=== PATIENT | female | born 1990 | race Caucasian/White ===

== ENCOUNTER 2016-07-23 19:25 | Emergency (ER) | payer SELFPAY ==
[~2016-07-23] VITALS: Ht 154.9 cm; Wt 80.7 kg
[2016-07-23 21:17] LABS: BILIRUBIN,URINE NEGATIVE (NEG); GLUCOSE,URINE NEGATIVE (NEG); NITRITE,URINE NEGATIVE (NEG); PH,URINE 7.5; PROTEIN,URINE NEGATIVE (NEG-TRACE)
[2016-07-23 21:24] LABS: BACTERIA,URINE MANY /HPF (0-FEW); RBC,URINE 0 /HPF (0-2); SQUAMOUS EPITHELIAL CELL,UR MANY /LPF
[2016-07-23 21:55] LABS: BASO % 0 % (0-3); EOS % 2 % (0-3); HEMOGLOBIN 12.8 g/dL (12.0-15.5); LYMPH # 2.1 x10^3/uL (1.0-4.8); LYMPH % 19 % (24-48); MEAN CORPUSCULAR HEMOGLOBIN 32 pg (25-35); MEAN CORPUSCULAR HGB CONC 34 g/dL (31-37); MEAN CORPUSCULAR VOLUME 94 fL (79-100); MONO % 6 % (0-9); NEUT % 73 % (31-73); PLATELET COUNT 246 x10^3/uL (140-400); RED BLOOD COUNT 4.03 x10^6/uL (3.50-5.40); RED CELL DISTRIBUTION WIDTH 13.1 % (11.5-14.5); WHITE BLOOD COUNT 11.3 x10^3/uL (4.0-11.0)
[2016-07-23 22:18] LABS: ALBUMIN 3.3 g/dL (3.4-5.0); CALCIUM 8.5 mg/dL (8.5-10.1); CREATININE 0.6 mg/dL (0.6-1.0); GFR 122.8; TOTAL BILIRUBIN 0.2 mg/dL (0.2-1.0); TOTAL PROTEIN 6.6 g/dL (6.4-8.2)
--- NOTE | 2016-07-23 22:57 | PHYS DOC ---
Past Medical History Past Medical History: No Pertinent History, Anxiety, Bipolar, Other Additional Past Medical Histor: MANIC DEPRESSIVE Past Surgical History: Tonsillectomy Alcohol Use: None Drug Use: None Adult General Chief Complaint Chief Complaint: ABDOMINAL PAIN IN HPI HPI Patient is a 26 year old female who presents here today complaining of abdominal pain has been on for approximately 2 days. Patient denies any history of hypertension diabetes liver longer kidney problems. Patient portion does smoke no alcohol or drugs. Patient is 1 para 0. Patient has any fevers shakes chills nausea vomiting diarrhea chest pain shortness of breath cough cold or runny nose. Patient has a dysuria frequency or urgency. Patient has any vaginal bleeding or vaginal discharge. Patient is unclear when her last menstrual period is. Patient reports the pain is diffuse in nature and comes and goes. Patient has good appetite. Patient reports she is tolerating by mouth' s without any difficulties. Patient denies any pain with ambulation or coughing. Patient's physical exam the ER is consistent with mild tenderness to palpation to her suprapubic region and diffusely. Patient has no rebound or guarding. Patient has normal active bowel sounds. Patient is not exhibiting any signs or symptoms of be concerning for an acute surgical abdomen. No tenderness at McBurney's point. Patient has no Guerra sign tenderness. Patient's ER workup consisting of an ultrasound which revealed an 8 week 5 day intrauterine with heart tones at 169. Patient's labs were all within normal limits except for a potassium 3.0. A/P #1 and abdominal pain. Patient is 8 weeks 5 days without any pathology noted on the ultrasound. Results were discussed with the patient. Patient will be discharged home to follow-up with her primary care physician. Threatened miscarriage precautions were reviewed with the patient. Patient was instructed to follow-up with OB doctor within the next week for reevaluation. #2 hypokalemia. Patient was given potassium 40 mEq by mouth in the ED and was instructed with dietary supplementation. Review of Systems Review of Systems Constitutional: Denies fever or chills [] Eyes: Denies change in visual acuity, redness, or eye pain [] HENT: Denies nasal congestion or sore throat [] All other review systems are negative except as documented in the history of present illness portion Current Medications Current Medications Current Medications Medications (Trade) Dose Ordered Sig/Korina Start Time Stop Time Status Last Admin Dose Admin Acetaminophen (Tylenol) 650 mg 1X ONCE 07/23/16 23:30 07/23/16 23:31 DC 07/23/16 23:49 650 MG Potassium Chloride (Klor-Con) 40 meq 1X ONCE 07/23/16 23:30 07/23/16 23:31 DC 07/23/16 23:50 40 MEQ Allergies Allergies Allergies Coded Allergies Type Severity Reaction Last Updated Verified Unable to Assess 07/23/16 No Physical Exam Physical Exam Constitutional: Well developed, well nourished, no acute distress, non-toxic appearance. [] HENT: Normocephalic, atraumatic, bilateral external ears normal, oropharynx moist, no oral exudates, nose normal. [] Eyes: PERRLA, EOMI, conjunctiva normal, no discharge. [] Neck: Normal range of motion, no tenderness, supple, no stridor. [] Cardiovascular:Heart rate regular rhythm, no murmur [] Lungs & Thorax: Bilateral breath sounds clear to auscultation [] Abdomen: Bowel sounds normal, soft, mild diffuse tenderness, no masses, no pulsatile masses. [] Skin: Warm, dry, no erythema, no rash. [] Back: No tenderness, no CVA tenderness. [] Extremities: No tenderness, no cyanosis, no clubbing, ROM intact, no edema. [] Neurologic: Alert and oriented X 3, normal motor function, normal sensory function, no focal deficits noted. [] Psychologic: Affect normal, judgement normal, mood normal. [] Current Patient Data Vital Signs Vital Signs Date Time Temp Pulse Resp B/P Pulse Ox O2 Delivery O2 Flow Rate FiO2 07/23/16 21:11 98.1 110 18 119/67 98 Room Air 98.1 Lab Values Laboratory Tests Test 07/23/16 19:34 07/23/16 21:45 Urine Collection Type Unknown Urine Color Yellow Urine Clarity Cloudy Urine pH 7.5 Urine Specific [place] 1.025 Urine Protein Negativemg/dL (NEG-TRACE) Urine Glucose (UA) Negativemg/dL (NEG) Urine Ketones (Stick) Negativemg/dL (NEG) Urine Blood Negative (NEG) Urine Nitrite Negative (NEG) Urine Bilirubin Negative (NEG) Urine Urobilinogen Dipstick 1.0mg/dL (0.2 mg/dL) Urine Leukocyte Esterase Small (NEG) Urine RBC 0/HPF (0-2) Urine WBC 1-4/HPF (0-4) Urine Squamous Epithelial Cells Many/LPF Urine Bacteria Many/HPF (0-FEW) Urine Mucus Mod/LPF White Blood Count 11.3x10^3/uL (4.0-11.0) H Red Blood Count 4.03x10^6/uL (3.50-5.40) Hemoglobin 12.8g/dL (12.0-15.5) Hematocrit 38.0% (36.0-47.0) Mean Corpuscular Volume 94fL (79-100) Mean Corpuscular Hemoglobin 32pg (25-35) Mean Corpuscular Hemoglobin Concent 34g/dL (31-37) Red Cell Distribution Width 13.1% (11.5-14.5) Platelet Count 246x10^3/uL (140-400) Neutrophils (%) (Auto) 73% (31-73) Lymphocytes (%) (Auto) 19% (24-48) L Monocytes (%) (Auto) 6% (0-9) Eosinophils (%) (Auto) 2% (0-3) Basophils (%) (Auto) 0% (0-3) Neutrophils # (Auto) 8.2x10^3uL (1.8-7.7) H Lymphocytes # (Auto) 2.1x10^3/uL (1.0-4.8) Monocytes # (Auto) 0.7x10^3/uL (0.0-1.1) Eosinophils # (Auto) 0.2x10^3/uL (0.0-0.7) Basophils # (Auto) 0.0x10^3/uL (0.0-0.2) Maternal Serum HCG Beta Subunit 30675kTM/mL (0-6) H Sodium Level 139mmol/L (136-145) Potassium Level 3.0mmol/L (3.5-5.1) L Chloride Level 105mmol/L (98-107) Carbon Dioxide Level 27mmol/L (21-32) Anion Gap 7 (6-14) Blood Urea Nitrogen 11mg/dL (7-20) Creatinine 0.6mg/dL (0.6-1.0) Estimated GFR (Cockcroft-Gault) 122.8 BUN/Creatinine Ratio 18 (6-20) Glucose Level 86mg/dL (70-99) Calcium Level 8.5mg/dL (8.5-10.1) Total Bilirubin 0.2mg/dL (0.2-1.0) Aspartate Amino Transferase (AST) 17U/L (15-37) Alanine Aminotransferase (ALT) 54U/L (14-59) Alkaline Phosphatase 52U/L (46-116) Total Protein 6.6g/dL (6.4-8.2) Albumin 3.3g/dL (3.4-5.0) L Albumin/Globulin Ratio 1.0 (1.0-1.7) Laboratory Tests 07/23/16 21:45 Laboratory Tests 07/23/16 21:45 EKG EKG [] Radiology/Procedures Radiology/Procedures [] Course & Med Decision Making Course & Med Decision Making Pertinent Labs and Imaging studies reviewed. (See chart for details) [] Dragon Disclaimer Dragon Disclaimer This electronic medical record was generated, in whole or in part, using a voice recognition dictation system. Departure Departure Impression: Primary Impression: Abdominal pain during Additional Impressions: Threatened miscarriage Hypokalemia Disposition: HOME, SELF-CARE Condition: IMPROVED Referrals: NO PCP (PCP) Patient Instructions: Abdominal Pain During , Threatened Miscarriage Additional Instructions: Please make an appointment to follow-up with an cask maker within the next week for reevaluation of your abdominal pain. You will need to follow-up with an cask maker for further management of her . Return to the ER for any further problems or concerns. You may take Tylenol as needed for abdominal pain during . Problem Qualifiers FERNANDO HEMPHILL MD Jul 23, 2016 22:57
--- NOTE | 2016-07-23 23:06 | RAD ---
PROCEDURE Obstetric ultrasound, less than 14 weeks. HISTORY Right lower quadrant pain. TECHNIQUE Real-time ultrasound imaging of the pelvis using transabdominal window is performed. COMPARISON None. FINDINGS Uterus measures 9 x 6.6 x 6.3 cm. Cervix length is about 3.1 cm. No focal abnormality. No cul-de-sac free fluid is identified. The maternal ovaries demonstrate normal blood flow. Right ovary measures 3.6 x 2.3 x 1.9 cm. The left ovary measures 3.8 x 3 x 2.2 cm. There is intrauterine gestational sac. No perigestational hemorrhage is identified. A yolk sac is seen. [place]-rump length 2.1 cm, 8 weeks and 5 days. Estimated heart rate 169 beats per minute. EDC ultrasound is January 18, 2017. IMPRESSION Single live intrauterine gestation, estimated sonographic gestational age 8 weeks and 5 days. Electronically signed by: Alfonso Estes MD (Jul 23, 2016 23:04:24)
[2016-07-23 23:22] VITALS: BP 110/70
[2016-07-23] MEDS ORDERED: ACETAMINOPHEN 325 MG TABLET. PO ONE (23:30)
[2016-07-23] MEDS ORDERED: POTASSIUM CHLORIDE 20 MEQ TABLET.ER. PO ONE (23:30)
== END 2016-07-23 23:55 | disposition home or self-care (01) ==
LOC: ER 19:25
DX: O20.0 Threatened abortion (principal); Z3A.08 8 weeks gestation of pregnancy; O26.891 Other specified pregnancy related conditions, first trimester; E87.6 Hypokalemia; F41.9 Anxiety disorder, unspecified
CPT/HCPCS: 36415; 76801; 80053; 81001; 84702; 85027; 86850; 86900; 86901; 87086; 99285-25